=== PATIENT | male | born 1940 | race Hispanic/Latino ===

== ENCOUNTER 2021-02-26 21:12 | Emergency (ER) | payer MEDICARE ==
[2021-02-26 22:23] VITALS: BP 116/48
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
== END 2021-02-27 09:50 | disposition home or self-care (01) ==
LOC: ED 21:12
DX: F03.90 Unspecified dementia, unspecified severity, without behavioral disturbance, psychotic disturbance, mood disturbance, and anxiety (principal); I10 Essential (primary) hypertension; E11.8 Type 2 diabetes mellitus with unspecified complications
CPT/HCPCS: 99283

== ENCOUNTER 2021-12-12 16:54 | Emergency (ER) | payer MEDICARE ==
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
--- NOTE | 2021-12-12 23:06 | Cat Scan Report ---
CT HEAD WITHOUT CONTRAST INDICATION / CLINICAL INFORMATION: fall/trauma with laceration to posterior head. TECHNIQUE: All CT scans at this location are performed using CT dose reduction for ALARA by means of automated exposure control. COMPARISON: None available. FINDINGS: BRAIN PARENCHYMA: No acute intracranial hemorrhage. No evidence of recent infarct. No mass effect or midline shift. There is generalized age-appropriate atrophy with probable chronic microvascular ische jesus alberto changes along the periventricular white matter. VENTRICULAR SYSTEM/EXTRA-AXIAL SPACES: Ventricles are normal for age. No extra-axial fluid collection . ORBITS: Normal as visualized. SKELETAL SYSTEM/SOFT TISSUES: No acute findings. Skin spring are seen along the midline of the poste rior parietal scalp. A possible sebaceous cyst is seen along the posterior aspect of the right neck o n image 4 of series 2 measuring up to 2.5 cm. No other significant abnormality. PARANASAL SINUSES/MASTOID AIR CELLS: No significant abnormality. ADDITIONAL FINDINGS: None. IMPRESSION: 1. No acute intracranial abnormality. 2. Additional findings as above. Signer Name: Kelechi Castle MD Signed: 12/12/2021 11:02 PM Workstation Name: [id number]
== END 2021-12-13 11:19 | disposition home or self-care (01) ==
LOC: ED 16:54
DX: S01.01XA Laceration without foreign body of scalp, initial encounter (principal); W19.XXXA Unspecified fall, initial encounter; Y93.89 Activity, other specified; Y92.89 Other specified places as the place of occurrence of the external cause; Y99.8 Other external cause status; I10 Essential (primary) hypertension; E11.9 Type 2 diabetes mellitus without complications; F03.90 Unspecified dementia, unspecified severity, without behavioral disturbance, psychotic disturbance, mood disturbance, and anxiety
CPT/HCPCS: 70450; 99283